=== PATIENT | female | born 1975 | race Hispanic/Latino ===

== ENCOUNTER 2018-01-11 09:15 | Emergency (ER) | payer BC ==
[~2018-01-11] VITALS: Ht 167.6 cm; Wt 87.5 kg
[2018-01-11] MEDS ORDERED: IMITREX25 MG (10:27)
[2018-01-11] MEDS ORDERED: HYDROCHLOROTHIA25 MG (10:28)
[2018-01-11] MEDS ORDERED: ZANAFLEX4 M1 (10:29)
[2018-01-11 10:41] VITALS: BP 138/78
== END 2018-01-11 10:43 | disposition home or self-care (01) ==
LOC: FSED 09:15
DX: M62.830 Muscle spasm of back (principal); M54.6 Pain in thoracic spine; F41.0 Panic disorder [episodic paroxysmal anxiety]; K52.9 Noninfective gastroenteritis and colitis, unspecified; I10 Essential (primary) hypertension; F17.210 Nicotine dependence, cigarettes, uncomplicated
CPT/HCPCS: 93005; 99282